=== PATIENT | male | born 1945 | race Caucasian/White ===

== ENCOUNTER 2024-06-22 07:45 | Day surgery (SDC) | payer MEDICARE, BC ==
[2024-06-22] MEDS ORDERED: Midazolam 1 MG/ML 2 ML SDV IV ONE (07:46)
[2024-06-22] MEDS ORDERED: fentaNYL 100 MCG/2 ML SDV IV ONE (07:46)
[2024-06-22] MEDS ORDERED: Sodium Chloride 0.9% 10 ML Syringe FLUSH PRN (08:00)
[2024-06-22] MEDS: Lactated Ringers 1,000 ML IV SCH (08:44)
[2024-06-22] MEDS: acetaZOLAMIDE 500 MG Cap.ER PO ONE (10:11)
== END 2024-06-22 10:23 | disposition home or self-care (01) ==
LOC: FB.SDS 07:45
PROVIDERS: ATTEND Ophthalmology
DX: H26.9 Unspecified cataract (principal); I48.91 Unspecified atrial fibrillation; I11.0 Hypertensive heart disease with heart failure; I50.9 Heart failure, unspecified; E78.5 Hyperlipidemia, unspecified; E11.9 Type 2 diabetes mellitus without complications; Z87.891 Personal history of nicotine dependence
CPT/HCPCS: 66984; A9270; J2250; J3010; J7120; V2632; 00142; 99100

== ENCOUNTER 2024-07-06 09:33 | Day surgery (SDC) | payer MEDICARE, BC ==
[2024-07-06] MEDS ORDERED: fentaNYL 100 MCG/2 ML SDV IV ONE (09:34)
[2024-07-06] MEDS ORDERED: Midazolam 1 MG/ML 2 ML SDV IV ONE (09:34)
[2024-07-06] MEDS ORDERED: Lactated Ringers 1,000 ML IV SCH (09:45)
[2024-07-06] MEDS: Sodium Chloride 0.9% 10 ML Syringe FLUSH PRN (10:29)
[2024-07-06] MEDS: acetaZOLAMIDE 500 MG Cap.ER PO ONE (11:45)
== END 2024-07-06 12:05 | disposition home or self-care (01) ==
LOC: FB.SDS 09:33
PROVIDERS: ATTEND Ophthalmology
DX: E11.36 Type 2 diabetes mellitus with diabetic cataract (principal); H26.9 Unspecified cataract; E78.5 Hyperlipidemia, unspecified; I11.0 Hypertensive heart disease with heart failure; I50.9 Heart failure, unspecified; I48.91 Unspecified atrial fibrillation; Z68.36 Body mass index [BMI] 36.0-36.9, adult; Z79.84 Long term (current) use of oral hypoglycemic drugs; Z79.899 Other long term (current) drug therapy
CPT/HCPCS: 66984; 82947; A9270; J2250; J3010; J3490; V2632; 00142; 99100